=== PATIENT | female | born 1965 | race Caucasian/White ===

== ENCOUNTER 2023-02-17 00:39 | Inpatient (IN) ==
[2023-02-17] MEDS ORDERED: VANCOMYCIN HCL 2,000 MG in SODIUM CHLORIDE 0.9% 500 ML IV ONE (01:19)
[2023-02-17] MEDS ORDERED: VANCOMYCIN CONSULT ACTIVE PRN (01:19)
[2023-02-17] MEDS ORDERED: PIPERACILLIN/TAZOBACTAM 4.5 GM/120 ML BAG IV ONE (01:19)
[2023-02-17 01:25] LABS: Basophils # (auto) 0.02 K/uL (0-0.2); Basophils % (auto) 0.2 %; Eosinophils # (auto) 0.08 K/uL (0-0.50); Eosinophils % (auto) 0.8 %; Hematocrit (blood only) 36.7 % (37.0-47.0); Hemoglobin 12.4 g/dl (12.0-16.0); Immature Granulocytes # (auto) 0.02 K/uL (0.01-0.20); Immature Granulocytes % (auto) 0.2 %; Lymphocytes # (auto) 1.31 K/uL (1.2-3.4); Lymphocytes % (auto) 13.7 %; Mean Corpuscular Hemoglobin 29.6 pg (25.0-34.0); Mean Corpuscular Hgb Conc 33.8 g/dL (32.0-36.0); Mean Corpuscular Volume 87.6 fL (80.0-100.0); Mean Platelet Volume 10.2 fL (9.4-12.4); Monocytes # (auto) 1.12 K/uL (0.11-0.59); Monocytes % (auto) 11.7 %; Neutrophils # (auto) 6.99 K/uL (1.40-6.50); Neutrophils % (auto) 73.4 %; Platelet Count 161 K/uL (130-400); RDW Coefficient of Variation 13.7 % (11.5-14.5); RDW Standard Deviation 43.8 fL (36.4-46.3); Red Blood Count 4.19 M/uL (4.20-5.40); White Blood Count 9.54 K/ul (4.8-10.8)
[2023-02-17] MEDS ORDERED: SODIUM CHLORIDE 0.9% 1000ML 1,000 ML IV SCH ×2 (01:30→05:09)
[2023-02-17 01:40] LABS: Albumin Level 3.8 gm/dl (3.4-5.0); BUN Creatinine Ratio 15.9 (10-20); Bilirubin Direct 0.1 mg/dl (0-0.2); Bilirubin,Total 0.4 mg/dl (0.2-1.0); Calcium 9.1 mg/dl (8.6-10.3); Creatinine Clr Calc Pharmacy 90.4 ml/min; Est GFR (African American) 90.8 ml/min; Est GFR (Non-African American) 78.3 ml/min; Potassium 3.2 mmol/L (3.5-5.1); Total Protein 6.6 gm/dl (6.0-8.3)
[2023-02-17 01:47] LABS: Troponin I High Sensitivity 9.7 pg/ml (0-14)
--- NOTE | 2023-02-17 04:10 | History & Physical Report ---
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 Right thumb infection Cellulitis of the right upper extremity Blister on the right thumb Started IV Zosyn and Vanco Ortho consult N.p.o. for now Monitor the response History of CVA Cerebellar ataxia Wheelchair-bound speech and language deficits secondary to stroke On aspirin and statin peripheral artery disease On aspirin and statin Seems there is plan for vascular surgery evaluation Bilateral lower extreme edema on Lasix Hypertension On metoprolol DVT prophylaxis with Lovenox Disposition medical floor CODE STATUS DNR/DNI as per discussion with the patient History of Present Illness Chief Complaint: Right hand infection Primary Care Provider: [facility] 57-year-old female with past med significant for hyperlipidemia, peripheral artery disease, hypertension, history of pericardial fusion, GERD, vitamin B12 deficiency, osteopenia, osteoarthritis, history of bilateral lower extremity edema, cerebellar ataxia s/p CVA wheelchair-bound, 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 Patient reports blister of right thumb noticed yesterday and and progressive extending erythematous changes into the arm. Patient also seem to insect bites on the right posterior aspect of her thigh. [facility] Rocephin was given and the plan was to start Keflex but as infection was progressing was sent to ER. Patient has some pressured speech but is able to converse okay. Wheelchair-bound. She is states can eat regular diet. Denies any fevers. No pain at infection site. No chest pain or shortness of breath. No nausea. No abdominal pain. No headaches. No runny nose or sore throat. Normal bowel and bladder movements. Past medical history as mentioned above Past surgical history ligation of oviducts Social history currently single [facility]. Quit smoking 2008. Alcohol occasional. No drug use. Family history father mother has heart disease Allergies Allergy/AdvReac Type Severity Reaction Status Date / Time No Known Allergies Allergy Unverified 02/17/23 01:01 Home Medications Medication Instructions Recorded Confirmed Type acetaminophen 325 mg tablet 650 mg PO Q4 PRN mild to severe 02/17/23 02/17/23 History pain acetaminophen 325 mg tablet 650 mg PO Q4 PRN temp>100.4 02/17/23 02/17/23 History (Tylenol) alendronate 70 mg tablet 70 mg PO WK 02/17/23 02/17/23 History aspirin 81 mg tablet,delayed 81 mg PO DAILY 02/17/23 02/17/23 History release atorvastatin 20 mg tablet 20 mg PO HS 02/17/23 02/17/23 History biotin 300 mcg tablet 300 mcg PO DAILY 02/17/23 02/17/23 History calcium carbonate 200 mg calcium 200 mg PO Q6 PRN Indigestion 02/17/23 02/17/23 History (500 mg) chewable tablet (Calcium Antacid) cephalexin 500 mg capsule 500 mg PO TID 02/17/23 02/17/23 History cholecalciferol (vitamin D3) 25 25 mcg PO DAILY 02/17/23 02/17/23 History mcg (1,000 unit) tablet (Vitamin D3) citalopram 10 mg tablet 10 mg PO DAILY 02/17/23 02/17/23 History cyanocobalamin (vitamin B-12) 1,000 mcg IM MONTHLY 02/17/23 02/17/23 History 1,000 mcg/mL injection solution diclofenac sodium 1 % topical gel 4 g topical QID 02/17/23 02/17/23 History furosemide 40 mg tablet 40 mg PO QAM 02/17/23 02/17/23 History gabapentin 100 mg capsule 200 mg PO TID 02/17/23 02/17/23 History hydrocortisone 2.5 % topical cream 1 applic topical BID 02/17/23 02/17/23 History metoprolol tartrate 50 mg tablet 50 mg PO AMPM 02/17/23 02/17/23 History polyethylene glycol 3350 17 17 g PO WK 02/17/23 02/17/23 History gram/dose oral powder (Gavilax) povidone-iodine 10 % topical 1 applic topical TID 02/17/23 02/17/23 History solution (Betadine) topiramate 50 mg tablet 50 mg PO AMHS 02/17/23 02/17/23 History Past Med/Surg History Social History Smoking Status: Never smoker Preferred Language: [place] Feels Safe at Home: Yes Review of Systems Review of Systems: All systems reviewed & are unremarkable except as noted in Subjective Physical Exam Physical Exam: General- Not in distress Head- atraumatic Eyes- PERRL ENT- oropharynx clear Neck- supple, no JVD, Lungs- clear to auscultation bilaterally, no wheezing or crackles. Heart- regular rate rhythm; no murmur, no gallop. Abdomen- normal bowel sounds, soft, nontender, no distension. Extremities- no pretibial edema, Blister on right thumb, erythematous rash extending from right hand to forearm and arm.Excoriations seen on right thigh posterior aspect Neuro- alert, oriented x 3; PERRL, no facial palsy; pressured and slurred speech,insight ok, obeys commands, moves extremities Results & Data Results & Data Vital Signs (Past 12 Hours) Vital Signs Temp Pulse Pulse Resp BP BP Pulse Ox 02/17/23 03:17 59 L 17 126/75 95 02/17/23 00:48 64 02/17/23 00:57 61 17 99 02/17/23 00:57 37.2 C 61 17 133/95 99 02/17/23 00:49 37.2 C 61 17 133/95 99 O2 Del Method 02/17/23 03:17 Room Air 02/17/23 00:48 02/17/23 00:57 Room Air 02/17/23 00:57 Room Air 02/17/23 00:49 Room Air Diagnostic Findings Laboratory Results WBC 9.54 K/ul (4.8-10.8) 02/17/23 01:05 RBC 4.19 M/uL (4.20-5.40) L 02/17/23 01:05 Hgb 12.4 g/dl (12.0-16.0) 02/17/23 01:05 Hct 36.7 % (37.0-47.0) L 02/17/23 01:05 MCV 87.6 fL (80.0-100.0) 02/17/23 01:05 MCH 29.6 pg (25.0-34.0) 02/17/23 01:05 MCHC 33.8 g/dL (32.0-36.0) 02/17/23 01:05 RDW Std Deviation 43.8 fL (36.4-46.3) 02/17/23 01:05 RDW Coeff of Moise 13.7 % (11.5-14.5) 02/17/23 01:05 Plt Count 161 K/uL (130-400) 02/17/23 01:05 MPV 10.2 fL (9.4-12.4) 02/17/23 01:05 Immature Gran % (Auto) 0.2 % 02/17/23 01:05 Neut % (Auto) 73.4 % 02/17/23 01:05 Lymph % (Auto) 13.7 % 02/17/23 01:05 Rapides % (Auto) 11.7 % 02/17/23 01:05 Eos % (Auto) 0.8 % 02/17/23 01:05 Baso % (Auto) 0.2 % 02/17/23 01:05 Neut # (Auto) 6.99 K/uL (1.40-6.50) H 02/17/23 01:05 Lymph # (Auto) 1.31 K/uL (1.2-3.4) 02/17/23 01:05 Rapides # (Auto) 1.12 K/uL (0.11-0.59) H 02/17/23 01:05 Eos # (Auto) 0.08 K/uL (0-0.50) 02/17/23 01:05 Baso # (Auto) 0.02 K/uL (0-0.2) 02/17/23 01:05 Immature Gran # (Auto) 0.02 K/uL (0.01-0.20) 02/17/23 01:05 Sodium 141 mmol/L (136-145) 02/17/23 01:05 Potassium 3.2 mmol/L (3.5-5.1) L 02/17/23 01:05 Chloride 109 mmol/L (98-107) H 02/17/23 01:05 Carbon Dioxide 25 mmol/L (21-32) 02/17/23 01:05 Anion Gap 7 (3-11) 02/17/23 01:05 BUN 13 mg/dl (6-23) 02/17/23 01:05 Creatinine 0.82 mg/dl (0.6-1.2) 02/17/23 01:05 Est Cr Clr Drug Dosing 90.4 ml/min 02/17/23 01:05 Est GFR ( Amer) 90.8 ml/min 02/17/23 01:05 Est GFR (Non-Af Amer) 78.3 ml/min 02/17/23 01:05 BUN/Creatinine Ratio 15.9 (10-20) 02/17/23 01:05 Glucose 118 mg/dl (70-99(Fasting)) H 02/17/23 01:05 Lactate 0.9 mmol/L (0.4-2.0) 02/17/23 01:05 Calcium 9.1 mg/dl (8.6-10.3) 02/17/23 01:05 Magnesium 2.0 mg/dl (1.7-2.4) 02/17/23 01:05 Total Bilirubin 0.4 mg/dl (0.2-1.0) 02/17/23 01:05 Direct Bilirubin 0.1 mg/dl (0-0.2) 02/17/23 01:05 AST 11 U/L (13-39) L 02/17/23 01:05 ALT 10 U/L (7-52) 02/17/23 01:05 Alkaline Phosphatase 57 U/L (34-104) 02/17/23 01:05 Troponin I High Sens 9.7 pg/ml (0-14) 02/17/23 01:05 Total Protein 6.6 gm/dl (6.0-8.3) 02/17/23 01:05 Albumin 3.8 gm/dl (3.4-5.0) 02/17/23 01:05 Procalcitonin < 0.05 ng/ml (0-0.5) 02/17/23 01:05 SARS-CoV-2, RNA, NAAT NEGATIVE (NEGATIVE) 02/17/23 03:17 ECG Additional Comments: ECG sinus bradycardia at rate of [address] changes seen Code Status & VTE Plan VTE Prophylaxis Plan VTE Prophylaxis will be ordered: Yes
[2023-02-17] MEDS ORDERED: ACETAMINOPHEN 325 MG TAB PO PRN (05:09)
[2023-02-17] MEDS ORDERED: CALCIUM CARBONATE 500 MG CHEWABLE TAB PO PRN (05:09)
[2023-02-17] MEDS ORDERED: POLYETHYLENE (MIRALAX) 17 GM PACK PO PRN (05:09)
[2023-02-17 07:06] LABS: Appearance Urine Cloudy (Clear); Bacteria Urine Automated Negative (Negative); Bilirubin Urine Negative (Negative); Blood Urine Trace (Negative); Cast Urine Automated 0 /lpf (0-5); Color Urine Yellow; Glucose Urine UA Negative (Negative); Ketones Urine Negative (Negative); Leukocyte Esterase Urine Negative (Negative); Nitrite Urine Negative (Negative); Protein Urine Negative (Negative); Specific Gravity Urine 1.014 (1.000-1.030); Urobilinogen Urine Negative (Negative); pH Urine 7.5 (4.5-7.5)
--- NOTE | 2023-02-17 07:32 | XRay Report ---
XR chest 1V portable HISTORY: Sepsis COMPARISON: None. FINDINGS: There are low lung volumes. The cardiac silhouette is enlarged. There is mild central pulmo nary vascular congestion without overt edema. No focal lung consolidations to suggest a pneumonia. Ca lcifications noted within the aortic knob. No acute fractures identified. IMPRESSION: Cardiomegaly with mild central pulmonary vascular congestion without overt edema. ACT 112: Negative or not required by law. Electronically signed by: Jordan Vincent M.D. 02/17/2023 7:31 AM
[2023-02-17] MEDS ORDERED: PIPERACILLIN/TAZOBACTAM 4.5 GM in DEXTROSE 5% 100 ML IV SCH (08:00)
[2023-02-17 08:42] LABS: Basophils # (auto) 0.01 K/uL (0-0.2); Basophils % (auto) 0.1 %; Eosinophils # (auto) 0.08 K/uL (0-0.50); Eosinophils % (auto) 0.9 %; Hematocrit (blood only) 37.7 % (37.0-47.0); Hemoglobin 12.5 g/dl (12.0-16.0); Immature Granulocytes # (auto) 0.04 K/uL (0.01-0.20); Immature Granulocytes % (auto) 0.5 %; Lymphocytes # (auto) 0.91 K/uL (1.2-3.4); Lymphocytes % (auto) 10.7 %; Mean Corpuscular Hemoglobin 29.1 pg (25.0-34.0); Mean Corpuscular Hgb Conc 33.2 g/dL (32.0-36.0); Mean Corpuscular Volume 87.9 fL (80.0-100.0); Mean Platelet Volume 10.3 fL (9.4-12.4); Monocytes # (auto) 0.93 K/uL (0.11-0.59); Monocytes % (auto) 10.9 %; Neutrophils # (auto) 6.54 K/uL (1.40-6.50); Neutrophils % (auto) 76.9 %; Platelet Count 141 K/uL (130-400); RDW Coefficient of Variation 13.9 % (11.5-14.5); Red Blood Count 4.29 M/uL (4.20-5.40); White Blood Count 8.51 K/ul (4.8-10.8)
[2023-02-17 08:56] LABS: BUN Creatinine Ratio 15.4 (10-20); Calcium 8.1 mg/dl (8.6-10.3); Creatinine Clr Calc Pharmacy 113.3 ml/min; Est GFR (African American) 112.6 ml/min; Est GFR (Non-African American) 97.2 ml/min; Magnesium 1.8 mg/dl (1.7-2.4)
--- NOTE | 2023-02-17 09:11 | Pharmacy Report ---
Pharmacy PK ABX Note - Date of Service February 17, 2023 - Assessment and Plan Assessment 57 year old F receiving empiric vancomycin and Zosyn for treatment of right hand/upper extremity cellulitis. Patient resides at [facility] and is wheelchair bound following CVA. She reportedly received dose of ceftriaxone prior to coming to ER. Pertinent microbiologic data includes: Positive MRSA Nasal Swab, blood cultures x 2 pending. Patient is afebrile with negative procalcitonin and no overt leukocytosis Discussed with hospitalist, no known history of MDR gram-negative infection, will de-escalate Zosyn to ceftriaxone for now for more narrow gram-negative coverage. Day # 1 of antimicrobial therapy. Plan Vancomycin * Loading dose: 2000 mg IV x 1 * Maintenance dose: 1500 mg IV every 12 hours * Regimen is predicted to achieve target AUC/DILMA of 400-600 mg/L.hr * Random level ordered for: 02/19/23 Ceftriaxone * 2 g IV q24h Pharmacy will continue to follow and will adjust dose/frequency as necessary. Thank you. Pharmacy has transitioned to AUC monitoring for vancomycin. AUC/DILMA is the preferred PK/PD target and is associated with decreased risk of nephrotoxicity compared to traditional trough targets.
[2023-02-17] MEDS ORDERED: POTASSIUM CHLORIDE CRTAB 20 MEQ TABCR PO ONE (09:56)
[2023-02-17] MEDS: GABAPENTIN 100 MG CAP PO SCH ×3 (10:03→21:35)
[2023-02-17] MEDS: ASPIRIN 81 MG ECTAB PO SCH (10:03)
[2023-02-17] MEDS: CITALOPRAM 20 MG TAB PO SCH (10:03)
[2023-02-17] MEDS: CHOLECALCIFEROL 1,000 UNITS 25 MCG TAB PO SCH (10:03)
[2023-02-17] MEDS: FUROSEMIDE 40 MG TAB PO SCH (10:03)
[2023-02-17] MEDS: METOPROLOL TARTRATE 50 MG TAB PO SCH ×3 (10:04→21:37)
[2023-02-17] MEDS: ENOXAPARIN INJ 40 MG/0.4 ML SYR SQ SCH (10:04)
[2023-02-17] MEDS: TOPIRAMATE 50 MG TAB PO SCH ×2 (10:04→21:35)
[2023-02-17] MEDS: DICLOFENAC SOD 1% GEL 100 GM TUBE EXT SCH ×4 (10:04→21:36)
[2023-02-17] MEDS: VANCOMYCIN HCL 1,500 MG in SODIUM CHLORIDE 0.9% 500 ML IV SCH ×2 (11:07→21:29)
[2023-02-17] MEDS: POTASSIUM CHLORIDE / WTR 10 MEQ/100 ML PLCT IV SCH ×2 (11:08→12:15)
[2023-02-17] MEDS ORDERED: VANCOMYCIN HCL 1,250 MG in SODIUM CHLORIDE 0.9% 250 ML IV SCH (12:00)
--- NOTE | 2023-02-17 14:16 | Electrocardiogram Report ---
Test Reason : Blood Pressure : / mmHG Vent. Rate : 054 BPM Atrial Rate : 054 BPM P-R Int : 160 ms QRS Dur : 102 ms QT Int : 460 ms P-R-T Axes : 000 000 033 degrees QTc Int : 436 ms Sinus bradycardia Otherwise normal ECG No previous ECGs available Confirmed by Mark Orellana ([id number]) on 02/17/2023 2:15:32 PM Referred By: [facility] Confirmed By:Mil Orellana
--- NOTE | 2023-02-17 14:51 | Orthopedic Consultation ---
Date of Service February 17, 2023 Assessment & Plan (1) Infected hand: I cancelled her NPO order today. Will check ESR, CRP and xray of the thumb. I also ordered a MRI of the hand to evaluate for any abscess or fluid in the mcp joint. Will make her npo after midnight tonight in case of surgery tomorrow. Will discuss with Dr. Ceja, and continue to follow. History of Present Illness Reason for Consultation: . Requesting Physician: . Attending Physician: Daniel Killian MD . Nohelia is a 57 year old right hand dominant patient admitted for right thumb infection. She is a resident at [facility]. She states that she noticed a blister on her thumb "the other day". Per the admission H & P she developed this blister yesterday. Apparently she has some lesion on her thigh which is thought to be maybe a bug bite. She had erythema extending into the right forearm and was admitted last night, started on vanco/zoxyn, and is now recieving vanco and cetriaxone. She has not noticed much change since being admitted. She said that the thumb as not worsened or improved. She does not have much pain with it, e xcept for around the mcp joint. Allergies Allergy/AdvReac Type Severity Reaction Status Date / Time No Known Allergies Allergy Unverified 02/17/23 01:01 Home Medications Medication Instructions Recorded Confirmed Type acetaminophen 325 mg tablet 650 mg PO Q4 PRN mild to severe 02/17/23 02/17/23 History pain acetaminophen 325 mg tablet 650 mg PO Q4 PRN temp>100.4 02/17/23 02/17/23 History (Tylenol) alendronate 70 mg tablet 70 mg PO WK 02/17/23 02/17/23 History aspirin 81 mg tablet,delayed 81 mg PO DAILY 02/17/23 02/17/23 History release atorvastatin 20 mg tablet 20 mg PO HS 02/17/23 02/17/23 History biotin 300 mcg tablet 300 mcg PO DAILY 02/17/23 02/17/23 History calcium carbonate 200 mg calcium 200 mg PO Q6 PRN Indigestion 02/17/23 02/17/23 History (500 mg) chewable tablet (Calcium Antacid) cephalexin 500 mg capsule 500 mg PO TID 02/17/23 02/17/23 History cholecalciferol (vitamin D3) 25 25 mcg PO DAILY 02/17/23 02/17/23 History mcg (1,000 unit) tablet (Vitamin D3) citalopram 10 mg tablet 10 mg PO DAILY 02/17/23 02/17/23 History cyanocobalamin (vitamin B-12) 1,000 mcg IM MONTHLY 02/17/23 02/17/23 History 1,000 mcg/mL injection solution diclofenac sodium 1 % topical gel 4 g topical QID 02/17/23 02/17/23 History furosemide 40 mg tablet 40 mg PO QAM 02/17/23 02/17/23 History gabapentin 100 mg capsule 200 mg PO TID 02/17/23 02/17/23 History hydrocortisone 2.5 % topical cream 1 applic topical BID 02/17/23 02/17/23 History metoprolol tartrate 50 mg tablet 50 mg PO AMPM 02/17/23 02/17/23 History polyethylene glycol 3350 17 17 g PO WK 02/17/23 02/17/23 History gram/dose oral powder (Gavilax) povidone-iodine 10 % topical 1 applic topical TID 02/17/23 02/17/23 History solution (Betadine) topiramate 50 mg tablet 50 mg PO AMHS 02/17/23 02/17/23 History Past Med/Surg History Social History Smoking Status: Never smoker Hx Alcohol Use: No Hx Substance Use: No Preferred Language: Malian Communication Ability: Effective [employer] Hostess Required: No Beliefs That Will Affect Care: None Current Living Situation: Residential Other Information That Helps Us Care for You: No Feels Safe at Home: Yes Safety Concerns: Feels Safe At This Time Assistive Devices: Glasses Review of Systems All systems reviewed & are unremarkable except as noted in HPI & below. Physical Exam .alert and oriented. NAD. Sleeping when I saw her today and was easily awakened. Right upper extremity: Obvoius swelling, blistering of the right thumb. The blister is mostly on the dorsal radial side and extending around volar slightly. It extends from the nail fold to the mcp joint. No tenderness on the volar aspect of the finger, IP joint, or nail. She does have some tenderness of the mcp joint. Some erythema present around the thumb and extending faintly into the forearm. No pain with motion of her thumb, fingers, wrist or elbow. Palpable radial pulse. Sensation intact to touch. Vital signs stable, afebrile. wbc 8.51 today Results & Data Results & Data Laboratory Results . Diagnostic Findings . PG Care Time/CCT Total # of Minutes Spent Total Time Spent with Patient: Total time spent is greater than 50% in coordination of care (as documented) at patient's floor/unit and/or counseling patient: Coding Level of Care Code 85777 IN/OBS CONSULT LVL 3,45M Diagnoses Infected hand L08.9
[2023-02-17] MEDS: cefTRIAXone SODIUM 2,000 MG in DEXTROSE 5% 50 ML IV SCH (15:19)
--- NOTE | 2023-02-17 15:23 | Hospitalist Progress Note ---
Date of Service February 17, 2023 Assessment & Plan (1) Infected hand: Plan: Patient is a 57 yr female with H/O Hyperlipidemia, peripheral artery disease, hypertension, history of pericardial fusion, GERD, vitamin B12 deficiency osteopenia, osteoarthritis, history of bilateral lower extremity edema, cerebellar ataxia s/p CVA wheelchair-bound, speech and language deficits as late effect of stroke, anxiety, depression, history of tobacco abuse currently residing at [facility], [facility] [place] was brought in because of infection of the right hand. Right thumb infection R/O Abscess Cellulitis of the right upper extremity Blister on the right thumb -- ESR, CRP pending --X-ray, MRI hand pending --Blood cultures pending Pain is controlled Continue IV vancomycin, Rocephin for now Appreciate orthopedics input N.p.o. after midnight for possible procedure Hypokalemia Replete electrolytes as needed Monitor H/O CVA Cerebellar ataxia Wheelchair-bound at [facility] Speech and language deficits secondary to stroke On aspirin and statin Peripheral artery disease Continue aspirin and statin Planned for vascular surgery evaluation as outpatient B/L LE edema ? Venous Stasis Continue Lasix Hypertension Continue metoprolol DVT Px: Lovenox SQ CODE STATUS DNR/DNI Admission and Anticipated Discharge Date Admission Date: February 17, 2023 Subjective Patient is seen and examined at bedside States having right upper extremity discomfort associated with erythema Otherwise offers no new complaints Denies any chest pain, dyspnea, dizziness, nausea, vomiting, abdominal pain Review of Systems Review of Systems: All systems reviewed & are unremarkable except as noted in Subjective Physical Exam Physical Exam: Physical Exam: Vitals signs as noted above General Appearance:Moderately built and nourished, no apparent distress Head: normocephalic, Atraumatic Eyes: normal inspection, EOMI Neck: supple, Trachea midline Respiratory/Chest: Normal breath sounds, CTA, No accessory muscle use Cardiovascular: S1, S2, No murmur Abdomen/GI:Soft, Non tender, Bowel sounds present Extremities/Musculoskeletal:normal inspection, 1+ pedal edema, RUE+ Blister, Erythema Neurologic/Psych:AAO, +dysarthria , able to move all extremities Skin: normal color, warm Results & Data Results & Data Vital Signs (Past 12 Hours) Vital Signs Temp Pulse Pulse Pulse Resp BP BP 02/17/23 12:30 02/17/23 07:00 37.0 C 62 16 134/79 08/09/23 05:10 02/17/23 05:10 37.3 C 71 18 147/80 H 02/17/23 04:53 02/17/23 03:17 59 L 17 126/75 Pulse Ox O2 Del Method 02/17/23 12:30 Room Air 02/17/23 07:00 97 Room Air 02/17/23 05:10 Room Air 02/17/23 05:10 98 Room Air 02/17/23 04:53 Room Air 02/17/23 03:17 95 Room Air Laboratory Results Short CBC 02/17/23 02/17/23 Range/Units 01:05 07:42 WBC 9.54 8.51 (4.8-10.8) K/ul Hgb 12.4 12.5 (12.0-16.0) g/dl Hct 36.7 L 37.7 (37.0-47.0) % Plt Count 161 141 (130-400) K/uL BMP 02/17/23 02/17/23 01:05 07:42 Sodium 141 142 Potassium 3.2 L 3.0 L Chloride 109 H 112 H Carbon Dioxide 25 23 BUN 13 10 Creatinine 0.82 0.65 Glucose 118 H 106 H Calcium 9.1 8.1 L Liver Function 02/17/23 Range/Units 01:05 Total Bilirubin 0.4 (0.2-1.0) mg/dl Direct Bilirubin 0.1 (0-0.2) mg/dl AST 11 L (13-39) U/L ALT 10 (7-52) U/L Alkaline Phosphatase 57 (34-104) U/L Albumin 3.8 (3.4-5.0) gm/dl Urine 02/17/23 Range/Units 05:40 Urine Color Yellow Urine Appearance Cloudy A (Clear) Urine pH 7.5 (4.5-7.5) Ur Specific Beatrice 1.014 (1.000-1.030) Urine Protein Negative (Negative) Urine Glucose (UA) Negative (Negative)
--- NOTE | 2023-02-17 19:12 | XRay Report ---
RIGHT THUMB 3 VIEWS CLINICAL HISTORY: Thumb pain and infection. FINDINGS: 3 views of the right thumb are obtained. No prior studies are available for comparison at t he time of dictation. The skeletal structures are osteopenic. No fracture is seen. Mild osteoarthriti c change is seen at the first metacarpophalangeal and interphalangeal joints. Soft tissue edema is pr esent throughout the thumb, greatest dorsally. No bony erosion or periostitis is identified. No soft tissue gas or radiodense foreign body seen. IMPRESSION: Soft tissue swelling with no acute bony abnormality identified. Electronically signed by: Joey Carlos M.D. 02/17/2023 7:11 PM
--- NOTE | 2023-02-17 19:53 | Communication Note ---
Date of Service: February 17, 2023 I was consulted to see the patient regarding her thumb abscess by the hospitalist team as noted in the orders and in the hospitalist H&P. I came to perform the consultation however patient had already been seen by Brody Dewitt PA-C for the [facility]. I will defer care to Dr. Ceja and Brody Dewitt PA-C. Thank you for the consultation. Chuck Strauss, [facility] [place] Office: [phone]
[2023-02-17] MEDS: ATORVASTATIN 20 MG TAB PO SCH (21:35)
--- NOTE | 2023-02-17 22:09 | Magnetic Resonance Report ---
Exam(s): MRI RIGHT HAND Without Contrast EXAM: MR Right Upper Extremity Without Intravenous Contrast, Hand CLINICAL HISTORY: Reason for exam: thumb infection-attention to thumb. TECHNIQUE: Multiplanar magnetic resonance images of the right hand without intravenous contrast. COMPARISON: No relevant prior studies available. FINDINGS: Soft tissue bulla along the skin of the thumb. No abscess. No soft tissue gas. Marrow signal is within normal limits. No acute osteomyelitis. No joint effusion or septic arthritis. IMPRESSION: Soft tissue bulla of the thumb as can be seen in the setting of cellulitis. No underlying osteomyelitis or soft tissue abscess. Electronically signed by: Yosvany Rice MD 02/17/23 22:08 PM
--- NOTE | 2023-02-18 00:23 | Emergency Department Note ---
History of Present Illness General Chief complaint: Hand Injury/Pain Stated complaint: Blister R Thumb, Rash/Ulcer R Leg Time Seen by Provider: 02/17/23 00:46 History of Present Illness Maximum Pain Intensity: 5 This is a 57-year-old female presenting to the emergency department for evalu ation of infection to her right thumb and right arm. Patient is at a local detention and has received a dose of Rocephin that has not improved her pain. This initially was felt to be a blood blister that is now infected. The patient has had strokes in the past and slurs her speech at baseline. She has difficulty with ambulation and there are concerns for decubitus ulcers. Patient has not had distinct fever or chills. She rates her discomfort a 5/10. She arrives via EMS from the detention for evaluation. Home Medications Medication Instructions Recorded Confirmed Type acetaminophen 325 mg tablet 650 mg PO Q4 PRN mild to severe 02/17/23 02/17/23 History pain acetaminophen 325 mg tablet 650 mg PO Q4 PRN temp>100.4 02/17/23 02/17/23 History (Tylenol) alendronate 70 mg tablet 70 mg PO WK 02/17/23 02/17/23 History aspirin 81 mg tablet,delayed 81 mg PO DAILY 02/17/23 02/17/23 History release atorvastatin 20 mg tablet 20 mg PO HS 02/17/23 02/17/23 History biotin 300 mcg tablet 300 mcg PO DAILY 02/17/23 02/17/23 History calcium carbonate 200 mg calcium 200 mg PO Q6 PRN Indigestion 02/17/23 02/17/23 History (500 mg) chewable tablet (Calcium Antacid) cephalexin 500 mg capsule 500 mg PO TID 02/17/23 02/17/23 History cholecalciferol (vitamin D3) 25 25 mcg PO DAILY 02/17/23 02/17/23 History mcg (1,000 unit) tablet (Vitamin D3) citalopram 10 mg tablet 10 mg PO DAILY 02/17/23 02/17/23 History cyanocobalamin (vitamin B-12) 1,000 mcg IM MONTHLY 02/17/23 02/17/23 History 1,000 mcg/mL injection solution diclofenac sodium 1 % topical gel 4 g topical QID 02/17/23 02/17/23 History furosemide 40 mg tablet 40 mg PO QAM 02/17/23 02/17/23 History gabapentin 100 mg capsule 200 mg PO TID 02/17/23 02/17/23 History hydrocortisone 2.5 % topical cream 1 applic topical BID 02/17/23 02/17/23 History metoprolol tartrate 50 mg tablet 50 mg PO AMPM 02/17/23 02/17/23 History polyethylene glycol 3350 17 17 g PO WK 02/17/23 02/17/23 History gram/dose oral powder (Gavilax) povidone-iodine 10 % topical 1 applic topical TID 02/17/23 02/17/23 History solution (Betadine) topiramate 50 mg tablet 50 mg PO AMHS 02/17/23 02/17/23 History Allergies Allergy/AdvReac Type Severity Reaction Status Date / Time No Known Allergies Allergy Unverified 02/17/23 01:01 Past Med/Surg History Medical History History of stroke detention resident Surgical History Surgical history unknown Social History Smoking Status: Never smoker Hx Alcohol Use: No Hx Substance Use: No Preferred Language: Slovenian Communication Ability: Effective Research Engineer Required: No Beliefs That Will Affect Care: None Current Living Situation: Detention Other Information That Helps Us Care for You: No Feels Safe at Home: Yes Safety Concerns: Feels Safe At This Time Assistive Devices: Glasses Review of Systems A total of 10 systems reviewed and were otherwise negative Physical Exam Vital Signs Vital Signs - 24 hr 02/17/23 00:49 02/17/23 00:57 02/17/23 00:57 Temperature 37.2 C 37.2 C Temperature Source Oral Oral Pulse Rate 61 61 Pulse Rate [Apical] 61 Respiratory Rate 17 17 17 Respiratory Effort / Characteristics Non-Labored Spontaneous Non-Labored Spontaneous Respiratory Depth Normal Normal Blood Pressure 133/95 Blood Pressure [Right Arm] 133/95 Blood Pressure Mean 107 Blood Pressure Mean [Right Arm] 107 Blood Pressure Position Lying Blood Pressure Position [Right Arm] Lying Pulse Oximetry 99 99 99 Oxygen Delivery Method Room Air Room Air Room Air Sepsis Recent Fever Within 48 Hours No Sepsis New/Unexplained Change in Mental Status No Sepsis Action Taken by Nursing No Action Required 02/17/23 00:48 02/17/23 03:17 Temperature Temperature Source Pulse Rate 64 Pulse Rate [Apical] 59 L Respiratory Rate 17 Respiratory Effort / Characteristics Non-Labored Spontaneous Respiratory Depth Normal Blood Pressure Blood Pressure [Right Arm] 126/75 Blood Pressure Mean Blood Pressure Mean [Right Arm] 92 Blood Pressure Position Blood Pressure Position [Right Arm] Lying Pulse Oximetry 95 Oxygen Delivery Method Room Air Sepsis Recent Fever Within 48 Hours Sepsis New/Unexplained Change in Mental Status Sepsis Action Taken by Nursing VITALS: Vitals are noted on the nurse's note and reviewed by myself. Vital signs stable. GENERAL: White female who is pleasant and appears older than stated age. She has some slurring of speech that is reportedly baseline per EMS. HEAD: Normocephalic atraumatic. HEART: Regular rate and rhythm without murmurs gallops or rubs. LUNGS: Clear to auscultation bilaterally without wheezes, rales or rhonchi. No retractions or accessory muscle use. MUSCULOSKELETAL: The right thumb into the right wrist is quite erythematous and edematous. There does appear to be straw-colored fluid around the fingernail of the right thumb without obvious purulence. There is lymphangitic streaking up into the mid bicep on the right. NEURO: Patient was alert and oriented to person place and time. Course Administered Medications Aspirin (Aspirin 81 Mg Ectab) 81 mg PO DAILY [facility] Stop: 03/19/23 08:59 Last Admin: 02/17/23 10:03 Dose: 81 mg Documented By: JOIE Atorvastatin Calcium (Atorvastatin 20 Mg Tab) 20 mg PO HS [facility] Stop: 03/19/23 20:59 Last Admin: 02/17/23 21:35 Dose: 20 mg Documented By: SYEDA Citalopram Hydrobromide (Citalopram 20 Mg Tab) 10 mg PO DAILY [facility] Stop: 03/19/23 08:59 Last Admin: 02/17/23 10:03 Dose: 10 mg Documented By: JOIE Diclofenac Sodium (Diclofenac Sod 1% Gel 100 Gm Tube) 4 gm EXT QID [facility]; Protocol Stop: 03/19/23 08:59 Last Admin: 02/17/23 21:36 Dose: 4 gm Documented By: Admin: 02/17/23 18:43 Dose: 4 gm Documented By: Admin: 02/17/23 13:54 Dose: 4 gm Documented By: Admin: 02/17/23 10:04 Dose: 4 gm Documented By: JOIE Enoxaparin Sodium (Enoxaparin Inj 40 Mg/0.4 Ml Syr) 40 mg SQ Q24H [facility] Stop: 03/19/23 08:59 Last Admin: 02/17/23 10:04 Dose: 40 mg Documented By: JOIE Furosemide (Furosemide 40 Mg Tab) 40 mg PO QAM [facility] Stop: 03/19/23 08:59 Last Admin: 02/17/23 10:03 Dose: 40 mg Documented By: JOIE Gabapentin (Gabapentin 100 Mg Cap) 200 mg PO TID [facility] Stop: 03/19/23 08:59 Last Admin: 02/17/23 21:35 Dose: 200 mg Documented By: Admin: 02/17/23 13:54 Dose: 200 mg Documented By: Admin: 02/17/23 10:03 Dose: 200 mg Documented By: JOIE Vancomycin HCl 1,500 mg/ (Sodium Chloride) 530 mls @ 200 mls/hr IV Q12H [facility] Stop: 02/24/23 09:59 Last Admin: 02/17/23 21:29 Dose: 200 mls/hr Documented By: Infusion: 02/17/23 14:10 Dose: 0 mls/hr Documented By: Admin: 02/17/23 11:07 Dose: 200 mls/hr Documented By: JOIE Ceftriaxone Sodium 2,000 mg/ (Dextrose) 70 mls @ 140 mls/hr IV Q24H [facility] Stop: 02/24/23 15:59 Last Infusion: 02/17/23 15:54 Dose: 0 mls/hr Documented By: Admin: 02/17/23 15:19 Dose: 140 mls/hr Documented By: JOIE Metoprolol Tartrate (Metoprolol Tartrate 50 Mg Tab) 50 mg PO BID [facility] Stop: 03/19/23 08:59 Last Admin: 02/17/23 21:37 Dose: Not Given Documented By: Admin: 02/17/23 10:04 Dose: 50 mg Documented By: JOIE Topiramate (Topiramate 50 Mg Tab) 50 mg PO BID [facility] Stop: 03/19/23 08:59 Last Admin: 02/17/23 21:35 Dose: 50 mg Documented By: Admin: 02/17/23 10:04 Dose: 50 mg Documented By: JOIE Vitamin D (Cholecalciferol 1,000 Units 25 Mcg Tab) 1,000 units PO DAILY [facility] Stop: 03/19/23 08:59 Last Admin: 02/17/23 10:03 Dose: 1,000 units Documented By: GENEVAL Discontinued Medications Sodium Chloride (Nss 1000ml) 1,000 mls @ 999 mls/hr IV .Q1H1M [facility] Stop: 02/17/23 02:30 Last Infusion: 02/17/23 03:27 Dose: 0 mls/hr Documented By: Admin: 02/17/23 01:51 Dose: 999 mls/hr Documented By: CC Vancomycin HCl 2,000 mg/ (Sodium Chloride) 540 mls @ 200 mls/hr IV NOW ONE Stop: 02/17/23 04:00 Last Admin: 02/17/23 02:27 Dose: 200 mls/hr Documented By: CC Piperacillin Sod/Tazobactam Sod (Zosyn) 4.5 gm in 120 mls @ 240 mls/hr IV NOW ONE Stop: 02/17/23 01:48 Last Infusion: 02/17/23 02:26 Dose: 0 mls/hr Documented By: Admin: 02/17/23 01:49 Dose: 240 mls/hr Documented By: CC Piperacillin Sod/Tazobactam (Sod 4.5 gm/ Dextrose) 120 mls @ 30 mls/hr IV Q8H [facility]; Protocol Stop: 02/17/23 12:00 Last Infusion: 02/17/23 12:21 Dose: 0 mls/hr Documented By: Admin: 02/17/23 08:07 Dose: 30 mls/hr Documented By: RDL Sodium Chloride (Nss 1000ml) 1,000 mls @ 100 mls/hr IV .Q10H [facility] Stop: 02/17/23 15:08 Last Infusion: 02/17/23 15:20 Dose: 0 mls/hr Documented By: Admin: 02/17/23 05:49 Dose: 100 mls/hr Documented By: DEVIKA Potassium Chloride (K [place] / Wtr) 10 meq in 100 mls @ 100 mls/hr IV Q1H [facility] Stop: 02/17/23 11:59 Last Infusion: 02/17/23 13:47 Dose: 0 mls/hr Documented By: Admin: 02/17/23 12:15 Dose: 100 mls/hr Documented By: Infusion: 02/17/23 12:08 Dose: 100 mls/hr Documented By: Admin: 02/17/23 11:08 Dose: 100 mls/hr Documented By: GENEVAL Potassium Chloride (Potassium Chloride Crtab 20 Meq Tabcr) 40 meq PO ONE ONE Stop: 02/17/23 09:57 Last Admin: 02/17/23 11:08 Dose: 40 meq Documented By: RDL Medical Decision Making Differential Diagnosis Differential diagnosis includes: Etiologies such as cellulitis, abscess, osteomyelitis, MRSA infection, DVT, necrotizing fasciitis, dermatitis, drug eruption, as well as others were entertained Laboratory Data 02/17/23 07:42 02/17/23 07:42 Lab Results 02/17/23 02/17/23 02/17/23 Range/Units 01:05 01:05 01:05 WBC 9.54 (4.8-10.8) K/ul RBC 4.19 L (4.20-5.40) M/uL Hgb 12.4 (12.0-16.0) g/dl Hct 36.7 L (37.0-47.0) % MCV 87.6 (80.0-100.0) fL MCH 29.6 (25.0-34.0) pg MCHC 33.8 (32.0-36.0) g/dL RDW Std Deviation 43.8 (36.4-46.3) fL RDW Coeff of Moise 13.7 (11.5-14.5) % Plt Count 161 (130-400) K/uL MPV 10.2 (9.4-12.4) fL Immature Gran % (Auto) 0.2 % Neut % (Auto) 73.4 % Lymph % (Auto) 13.7 % [place] % (Auto) 11.7 % Eos % (Auto) 0.8 % Baso % (Auto) 0.2 % Neut # (Auto) 6.99 H (1.40-6.50) K/uL Lymph # (Auto) 1.31 (1.2-3.4) K/uL [place] # (Auto) 1.12 H (0.11-0.59) K/uL Eos # (Auto) 0.08 (0-0.50) K/uL Baso # (Auto) 0.02 (0-0.2) K/uL Immature Gran # (Auto) 0.02 (0.01-0.20) K/uL Sodium 141 (136-145) mmol/L Potassium 3.2 L (3.5-5.1) mmol/L Chloride 109 H (98-107) mmol/L Carbon Dioxide 25 (21-32) mmol/L Anion Gap 7 (3-11) BUN 13 (6-23) mg/dl Creatinine 0.82 (0.6-1.2) mg/dl Est Cr Clr Drug Dosing 90.4 ml/min Est GFR ( Amer) 90.8 ml/min Est GFR (Non-Af Amer) 78.3 ml/min BUN/Creatinine Ratio 15.9 (10-20) Glucose 118 H (70-99(Fasting)) mg/dl Lactate 0.9 (0.4-2.0) mmol/L Calcium 9.1 (8.6-10.3) mg/dl Magnesium 2.0 (1.7-2.4) mg/dl Total Bilirubin 0.4 (0.2-1.0) mg/dl Direct Bilirubin 0.1 (0-0.2) mg/dl AST 11 L (13-39) U/L ALT 10 (7-52) U/L Alkaline Phosphatase 57 (34-104) U/L Troponin I High Sens 9.7 (0-14) pg/ml Total Protein 6.6 (6.0-8.3) gm/dl Albumin 3.8 (3.4-5.0) gm/dl Procalcitonin (0-0.5) ng/ml SARS-CoV-2, RNA, NAAT (NEGATIVE) 02/17/23 02/17/23 Range/Units 01:05 03:17 WBC (4.8-10.8) K/ul RBC (4.20-5.40) M/uL Hgb (12.0-16.0) g/dl Hct (37.0-47.0) % MCV (80.0-100.0) fL MCH (25.0-34.0) pg MCHC (32.0-36.0) g/dL RDW Std Deviation (36.4-46.3) fL RDW Coeff of Moise (11.5-14.5) % Plt Count (130-400) K/uL MPV (9.4-12.4) fL Immature Gran % (Auto) % Neut % (Auto) % Lymph % (Auto) % [place] % (Auto) % Eos % (Auto) % Baso % (Auto) % Neut # (Auto) (1.40-6.50) K/uL Lymph # (Auto) (1.2-3.4) K/uL [place] # (Auto) (0.11-0.59) K/uL Eos # (Auto) (0-0.50) K/uL Baso # (Auto) (0-0.2) K/uL Immature Gran # (Auto) (0.01-0.20) K/uL Sodium (136-145) mmol/L Potassium (3.5-5.1) mmol/L Chloride (98-107) mmol/L Carbon Dioxide (21-32) mmol/L Anion Gap (3-11) BUN (6-23) mg/dl Creatinine (0.6-1.2) mg/dl Est Cr Clr Drug Dosing ml/min Est GFR ( Amer) ml/min Est GFR (Non-Af Amer) ml/min BUN/Creatinine Ratio (10-20) Glucose (70-99(Fasting)) mg/dl Lactate (0.4-2.0) mmol/L Calcium (8.6-10.3) mg/dl Magnesium (1.7-2.4) mg/dl Total Bilirubin (0.2-1.0) mg/dl Direct Bilirubin (0-0.2) mg/dl AST (13-39) U/L ALT (7-52) U/L Alkaline Phosphatase (34-104) U/L Troponin I High Sens (0-14) pg/ml Total Protein (6.0-8.3) gm/dl Albumin (3.4-5.0) gm/dl Procalcitonin < 0.05 (0-0.5) ng/ml SARS-CoV-2, RNA, NAAT NEGATIVE (NEGATIVE) Imaging Data Radiologist's Impression: Chest X-Ray 02/17/23 00:53 XR chest 1V portable HISTORY: Sepsis COMPARISON: None. FINDINGS: There are low lung volumes. The cardiac silhouette is enlarged. There is mild central pulmonary vascular congestion without overt edema. No focal lung consolidations to suggest a pneumonia. Calcifications noted within the aortic knob. No acute fractures identified. IMPRESSION: Cardiomegaly with mild central pulmonary vascular congestion without overt edema. ACT 112: Negative or not required by law. Electronically signed by: Jordan Vincent M.D. 02/17/2023 7:31 AM MDM Narrative Physical exam and history were performed. Nursing notes, EMR, and Medication List were personally reviewed. No social concerns were identified as barriers to patients care. Patient appears to have infection to the right hand that is streaking into the wrist and of the arm. Patient is in a detention and has been on Rocephin with worsening of symptoms. IV access was established and labs were obtained. Blood cultures and lactic were gathered. X-ray was performed. She was empirically started on vancomycin and Zosyn. COVID was performed. Patient's blood work is as above and was reviewed. She does not have a significantly elevated white blood cell count, gross anemia, bandemia, or significant electrolyte imbalance. Sed rate and CRP are markedly elevated. Chest x-ray does not show acute process. COVID is negative. Overall the patient does not appear well for discharge home. There is concerned that she has a worsening infection of her hand, which could be potentially devastating. Case was discussed with the on-call hospitalist team who agreed to evaluate her here in the ER. Please see their dictation for further patient course, plan, and disposition. The chart was completed utilizing [employer] Speech Voice Recognition Software. Grammatical errors, random word insertions, pronoun errors, and incomplete sentences are an occasional consequence of this system due to software limitations, ambient noise, and hardware issues. Any formal questions or concerns about the content, text, or information contained within the body of this dictation should be directly addressed to the provider for clarification. . Impression & Plan Infected hand Discharge Plan Visit Data Chief Complaint: Hand Injury/Pain Stated Complaint: Blister R Thumb, Rash/Ulcer R Leg ED Provider: Sam Sorto ED Midlevel Provider: Preston Pagan Discharge Problem: Infected hand Patient Disposition: Admitted As Inpatient Discharge Instructions Interventions: ED Discharge Assessment Last Done: 02/17/23 04:53
[2023-02-18 07:03] LABS: Creatinine Clr Calc Pharmacy 147.3 ml/min; Est GFR (African American) 122.8 ml/min; Est GFR (Non-African American) 105.9 ml/min; Potassium 3.3 mmol/L (3.5-5.1)
[2023-02-18] MEDS: GABAPENTIN 100 MG CAP PO SCH ×3 (07:46→20:06)
[2023-02-18] MEDS: METOPROLOL TARTRATE 50 MG TAB PO SCH ×2 (07:46→20:06)
[2023-02-18] MEDS: TOPIRAMATE 50 MG TAB PO SCH ×2 (07:46→20:06)
[2023-02-18] MEDS: CHOLECALCIFEROL 1,000 UNITS 25 MCG TAB PO SCH (07:47)
[2023-02-18] MEDS: FUROSEMIDE 40 MG TAB PO SCH (07:47)
[2023-02-18] MEDS: CITALOPRAM 20 MG TAB PO SCH (07:47)
[2023-02-18] MEDS: ASPIRIN 81 MG ECTAB PO SCH (07:47)
[2023-02-18] MEDS: DICLOFENAC SOD 1% GEL 100 GM TUBE EXT SCH ×4 (07:48→20:06)
[2023-02-18] MEDS: VANCOMYCIN HCL 1,500 MG in SODIUM CHLORIDE 0.9% 500 ML IV SCH ×2 (09:04→21:39)
[2023-02-18] MEDS ORDERED: POTASSIUM CHLORIDE CRTAB 20 MEQ TABCR PO ONE (09:34)
[2023-02-18 09:47] LABS: Hematocrit (blood only) 35.9 % (37.0-47.0); Mean Corpuscular Hemoglobin 29.8 pg (25.0-34.0); Mean Corpuscular Hgb Conc 33.4 g/dL (32.0-36.0); Mean Corpuscular Volume 89.1 fL (80.0-100.0); Mean Platelet Volume 10.3 fL (9.4-12.4); Platelet Count 145 K/uL (130-400); RDW Coefficient of Variation 13.7 % (11.5-14.5); RDW Standard Deviation 44.6 fL (36.4-46.3); Red Blood Count 4.03 M/uL (4.20-5.40); White Blood Count 6.93 K/ul (4.8-10.8)
[2023-02-18] MEDS: ENOXAPARIN INJ 40 MG/0.4 ML SYR SQ SCH (10:51)
--- NOTE | 2023-02-18 16:24 | Hospitalist Progress Note ---
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 Right thumb infection Ruled out Abscess Cellulitis of the right upper extremity Blister on the right thumb -- ESR 25 --CRP 6.7 --MRI hand:Soft tissue bulla of the thumb as can be seen in the setting of cellulitis. No underlying osteomyelitis or soft tissue abscess. --Blood cultures: Negative to date Pain is controlled Continue IV vancomycin, Rocephin Appreciate orthopedics input No plan for procedure Continue conservative management with IV antibiotics Hypokalemia Replete electrolytes as needed Monitor H/O CVA Cerebellar ataxia Wheelchair-bound at [facility] Speech and language deficits secondary to stroke On aspirin and statin Peripheral artery disease Continue aspirin and statin Planned for vascular surgery evaluation as outpatient B/L LE edema ? Venous Stasis Continue Lasix Hypertension Continue metoprolol DVT Px: Lovenox SQ CODE STATUS DNR/DNI Admission and Anticipated Discharge Date Admission Date: February 17, 2023 Subjective Patient is seen and examined at bedside No new complaints Reports right upper extremity pain intermittently Updated patient's family over the phone Denies any chest pain, dyspnea, dizziness, nausea, vomiting, abdominal pain Review of Systems Review of Systems: All systems reviewed & are unremarkable except as noted in Subjective Physical Exam Physical Exam: Physical Exam: Vitals signs as noted above General Appearance:Moderately built and nourished, no apparent distress Head: normocephalic, Atraumatic Eyes: normal inspection, EOMI Neck: supple, Trachea midline Respiratory/Chest: Normal breath sounds, CTA, No accessory muscle use Cardiovascular: S1, S2, No murmur Abdomen/GI:Soft, Non tender, Bowel sounds present Extremities/Musculoskeletal:normal inspection, 1+ pedal edema, RUE+ Blister, Erythema Neurologic/Psych:AAO, +dysarthria , able to move all extremities Skin: normal color, warm Results & Data Results & Data Vital Signs (Past 12 Hours) Vital Signs Temp Pulse Pulse Resp BP BP Pulse Ox 02/18/23 15:05 36.7 C 51 L 16 134/81 98 02/18/23 08:12 02/18/23 07:00 36.8 C 62 16 111/63 97 O2 Del Method 02/18/23 15:05 Room Air 02/18/23 08:12 Room Air 02/18/23 07:00 Room Air Laboratory Results Short CBC 02/18/23 02/18/23 Range/Units 06:20 09:28 WBC Cancelled 6.93 Hgb Cancelled 12.0 Hct Cancelled 35.9 L Plt Count Cancelled 145 BMP 02/18/23 06:20 Sodium 142 Potassium 3.3 L Chloride 115 H Carbon Dioxide 21 BUN 7 Creatinine 0.50 L Glucose 120 H Calcium 8.0 L
[2023-02-18] MEDS: cefTRIAXone SODIUM 2,000 MG in DEXTROSE 5% 50 ML IV SCH (16:27)
--- NOTE | 2023-02-18 17:18 | Orthopedic Progress Note ---
Date of Service February 18, 2023 Assessment & Plan (1) Infected hand: I looked over the MRI in detail and I did not see any infection that was extending into the hand. I did decompress the blister. There was purulent discharge that came out of the blister. It appeared to be an infected bulla or an infected blister of the right thumb. Once that was decompressed she already felt much better. This will help the antibiotics work much better. I do not see any indications for surgery at this time. Continue the antibiotics until healed. She can follow-up with orthopedics on an as-needed basis. If you have any further questions please feel free to contact me personally on my cell phone at [phone]. Mary Pozo was seen and examined at bedside this morning. She has a large blister on the dorsal aspect of her right thumb. She has been receiving IV antibiotics. She did have an MRI of her right thumb.. Review of Systems All systems reviewed & are unremarkable except as noted in HPI & below. Physical Exam On physical examination of right hand there is a very large blister involving the entire dorsal aspect of her right thumb. There is also some streaking erythema that goes up the radial side of her forearm towards her elbow.. Results & Data Results & Data Laboratory Results . Diagnostic Findings MRI of the right hand shows a soft tissue bulla or blister on the dorsal aspect of the right thumb. There is no signs of abscess no signs of osteomyelitis no signs of infection.. PG Care Time/CCT Total # of Minutes Spent Total Time Spent with Patient: Total time spent is greater than 50% in coordination of care (as documented) at patient's floor/unit and/or counseling patient: Coding Level of Care Code 15867 Post Operative Follow-Up Diagnoses Infected hand L08.9
[2023-02-18] MEDS: ATORVASTATIN 20 MG TAB PO SCH (20:06)
[2023-02-19] MEDS: ENOXAPARIN INJ 40 MG/0.4 ML SYR SQ SCH (08:00)
[2023-02-19] MEDS: FUROSEMIDE 40 MG TAB PO SCH (08:01)
[2023-02-19] MEDS: CITALOPRAM 20 MG TAB PO SCH (08:01)
[2023-02-19] MEDS: CHOLECALCIFEROL 1,000 UNITS 25 MCG TAB PO SCH (08:01)
[2023-02-19] MEDS: METOPROLOL TARTRATE 50 MG TAB PO SCH ×2 (08:01→20:16)
[2023-02-19] MEDS: GABAPENTIN 100 MG CAP PO SCH ×3 (08:02→20:16)
[2023-02-19] MEDS: TOPIRAMATE 50 MG TAB PO SCH ×2 (08:02→20:16)
[2023-02-19] MEDS: ASPIRIN 81 MG ECTAB PO SCH (08:02)
[2023-02-19] MEDS: DICLOFENAC SOD 1% GEL 100 GM TUBE EXT SCH ×4 (08:03→20:16)
[2023-02-19 08:28] LABS: Hematocrit (blood only) 32.2 % (37.0-47.0); Hemoglobin 10.7 g/dl (12.0-16.0); Mean Corpuscular Hemoglobin 29.3 pg (25.0-34.0); Mean Corpuscular Hgb Conc 33.2 g/dL (32.0-36.0); Mean Corpuscular Volume 88.2 fL (80.0-100.0); Mean Platelet Volume 10.9 fL (9.4-12.4); Platelet Count 140 K/uL (130-400); RDW Coefficient of Variation 13.7 % (11.5-14.5); RDW Standard Deviation 44.6 fL (36.4-46.3); Red Blood Count 3.65 M/uL (4.20-5.40); White Blood Count 3.86 K/ul (4.8-10.8)
[2023-02-19 08:32] LABS: BUN Creatinine Ratio 14.3 (10-20); Calcium 8.3 mg/dl (8.6-10.3); Creatinine Clr Calc Pharmacy 131.6 ml/min; Est GFR (African American) 118.3 ml/min; Est GFR (Non-African American) 102.1 ml/min; Magnesium 1.9 mg/dl (1.7-2.4); Potassium 3.2 mmol/L (3.5-5.1)
[2023-02-19] MEDS ORDERED: POLYETHYLENE (MIRALAX) 17 GM PACK PO SCH (09:00)
[2023-02-19] MEDS ORDERED: POTASSIUM CHLORIDE 20 MEQ/15 ML UDC PO ONE (09:55)
[2023-02-19] MEDS: VANCOMYCIN HCL 1,500 MG in SODIUM CHLORIDE 0.9% 500 ML IV SCH ×2 (10:24→21:18)
--- NOTE | 2023-02-19 12:20 | Pharmacy Report ---
Pharmacy PK ABX Note - Date of Service February 19, 2023 - Assessment and Plan Assessment 57 year old F receiving empiric vancomycin and Rocephin for treatment of right hand/upper extremity cellulitis. Patient resides at [facility] and is wheelchair bound following CVA. She reportedly received dose of ceftriaxone prior to coming to ER. Pertinent microbiologic data includes: Positive MRSA Nasal Swab, blood cultures x NGTD. Patient is afebrile with negative procalcitonin and no overt leukocytosis Day # 3 of antimicrobial therapy. Plan Vancomycin * Random level this morning was 17.6 mcg/mL * Continue maintenance dose: 1500 mg IV every 12 hours * Regimen is predicted to achieve target AUC/DILMA of 400-600 mg/L.hr * Random level ordered to be ordered again if continued > 5 days or significant change in renal function Ceftriaxone * 2 g IV q24h Pharmacy will continue to follow and will adjust dose/frequency as necessary. Thank you. Pharmacy has transitioned to AUC monitoring for vancomycin. AUC/DILMA is the preferred PK/PD target and is associated with decreased risk of nephrotoxicity compared to traditional trough targets.
[2023-02-19] MEDS: cefTRIAXone SODIUM 2,000 MG in DEXTROSE 5% 50 ML IV SCH (15:50)
--- NOTE | 2023-02-19 17:10 | Hospitalist Progress Note ---
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 Right thumb infection Ruled out Abscess Cellulitis of the right upper extremity Infected blister versus infected bulla of right thumb -- ESR 25 --CRP 6.7 --MRI hand:Soft tissue bulla of the thumb as can be seen in the setting of cellulitis. No underlying osteomyelitis or soft tissue abscess. --Blood cultures: Negative to date -S/P blister decompressed Pain is controlled Continue IV vancomycin, Rocephin Appreciate orthopedics input No plan for procedure Continue conservative management with IV antibiotics Continue current management Clinically improving Hypokalemia Replete electrolytes as needed Monitor H/O CVA Cerebellar ataxia Wheelchair-bound at [facility] Speech and language deficits secondary to stroke On aspirin and statin Peripheral artery disease Continue aspirin and statin Planned for vascular surgery evaluation as outpatient B/L LE edema ? Venous Stasis Continue Lasix Hypertension Continue metoprolol DVT Px: Lovenox SQ CODE STATUS DNR/DNI Admission and Anticipated Discharge Date Admission Date: February 17, 2023 Subjective Patient is seen and examined at bedside States feeling a lot better today Right hand pain, erythema much improved Reports ability to move fingers better today Denies any chest pain, dyspnea, dizziness, nausea, vomiting, abdominal pain Review of Systems Review of Systems: All systems reviewed & are unremarkable except as noted in Subjective Physical Exam Physical Exam: Physical Exam: Vitals signs as noted above General Appearance:Moderately built and nourished, no apparent distress Head: normocephalic, Atraumatic Eyes: normal inspection, EOMI Neck: supple, Trachea midline Respiratory/Chest: Normal breath sounds, CTA, No accessory muscle use Cardiovascular: S1, S2, No murmur Abdomen/GI:Soft, Non tender, Bowel sounds present Extremities/Musculoskeletal:normal inspection, 1+ pedal edema, RUE+ Blister, Erythema Neurologic/Psych:AAO, +dysarthria , able to move all extremities Skin: normal color, warm Results & Data Results & Data Vital Signs (Past 12 Hours) Vital Signs Temp Pulse Pulse Resp BP BP Pulse Ox 02/19/23 15:10 36.9 C 52 L 16 120/73 95 02/19/23 08:03 36.5 C 52 L 17 127/74 98 O2 Del Method 02/19/23 15:10 Room Air 02/19/23 08:03 Room Air Laboratory Results Short CBC 02/19/23 Range/Units 06:45 WBC 3.86 L (4.8-10.8) K/ul Hgb 10.7 L (12.0-16.0) g/dl Hct 32.2 L (37.0-47.0) % Plt Count 140 (130-400) K/uL BMP 02/19/23 06:45 Sodium 140 Potassium 3.2 L Chloride 114 H Carbon Dioxide 22 BUN 8 Creatinine 0.56 L Glucose 110 H Calcium 8.3 L
--- NOTE | 2023-02-19 17:24 | Orthopedic Progress Note ---
Date of Service February 19, 2023 Assessment & Plan (1) Infected hand: She seems to be doing better since the blister was decompressed. She will continue the IV antibiotics for now but I feel comfortable switching her to oral antibiotics when medically ready. She should continue to improve. She can follow-up with orthopedics as needed. Mary Pozo was seen and examined at bedside this morning. Overall she is doing fairly well. Clinically she seems to be improving. She says she has much less pain in her thumb.. Review of Systems All systems reviewed & are unremarkable except as noted in HPI & below. Physical Exam Physical examination of the right hand, the blister is still decompressed. The streaking cellulitis has subsided from her forearm.. Results & Data Results & Data Laboratory Results . Diagnostic Findings . PG Care Time/CCT Total # of Minutes Spent Total Time Spent with Patient: Total time spent is greater than 50% in coordination of care (as documented) at patient's floor/unit and/or counseling patient: Coding Level of Care Code 11222 Post Operative Follow-Up Diagnoses Infected hand L08.9
[2023-02-19] MEDS: ATORVASTATIN 20 MG TAB PO SCH (20:16)
[2023-02-20 07:08] LABS: Hematocrit (blood only) 33.3 % (37.0-47.0); Mean Corpuscular Hemoglobin 29.3 pg (25.0-34.0); Mean Corpuscular Volume 88.8 fL (80.0-100.0); Mean Platelet Volume 10.4 fL (9.4-12.4); Platelet Count 149 K/uL (130-400); RDW Coefficient of Variation 13.5 % (11.5-14.5); RDW Standard Deviation 44.2 fL (36.4-46.3); Red Blood Count 3.75 M/uL (4.20-5.40); White Blood Count 3.22 K/ul (4.8-10.8)
[2023-02-20 07:27] LABS: Calcium 8.4 mg/dl (8.6-10.3); Creatinine Clr Calc Pharmacy 120.8 ml/min; Est GFR (Non-African American) 99.2 ml/min; Potassium 3.6 mmol/L (3.5-5.1)
[2023-02-20] MEDS: DICLOFENAC SOD 1% GEL 100 GM TUBE EXT SCH ×4 (08:03→21:07)
[2023-02-20] MEDS: TOPIRAMATE 50 MG TAB PO SCH ×2 (08:03→21:08)
[2023-02-20] MEDS: METOPROLOL TARTRATE 50 MG TAB PO SCH ×2 (08:04→21:08)
[2023-02-20] MEDS: GABAPENTIN 100 MG CAP PO SCH ×3 (08:04→21:08)
[2023-02-20] MEDS: CHOLECALCIFEROL 1,000 UNITS 25 MCG TAB PO SCH (08:05)
[2023-02-20] MEDS: CITALOPRAM 20 MG TAB PO SCH (08:05)
[2023-02-20] MEDS: ENOXAPARIN INJ 40 MG/0.4 ML SYR SQ SCH (08:05)
[2023-02-20] MEDS: FUROSEMIDE 40 MG TAB PO SCH (08:06)
[2023-02-20] MEDS: ASPIRIN 81 MG ECTAB PO SCH (08:06)
[2023-02-20] MEDS: VANCOMYCIN HCL 1,500 MG in SODIUM CHLORIDE 0.9% 500 ML IV SCH ×2 (09:52→21:09)
--- NOTE | 2023-02-20 14:34 | Hospitalist Progress Note ---
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 Right thumb infection Ruled out Abscess Cellulitis of the right upper extremity Infected blister versus infected bulla of right thumb -- ESR 25 --CRP 6.7 --MRI hand:Soft tissue bulla of the thumb as can be seen in the setting of cellulitis. No underlying osteomyelitis or soft tissue abscess. --Blood cultures: Negative to date -S/P blister decompressed Pain is controlled Continue IV vancomycin, Rocephin Appreciate orthopedics input No plan for procedure Continue conservative management with IV antibiotics Will likely transition to p.o. antibiotics tomorrow and consider discharge if stable Hypokalemia Replete electrolytes as needed Monitor H/O CVA Cerebellar ataxia Wheelchair-bound at [facility] Speech and language deficits secondary to stroke On aspirin and statin Peripheral artery disease Continue aspirin and statin Planned for vascular surgery evaluation as outpatient B/L LE edema ? Venous Stasis Continue Lasix Hypertension Continue metoprolol DVT Px: Lovenox SQ CODE STATUS DNR/DNI Admission and Anticipated Discharge Date Admission Date: February 17, 2023 Subjective Patient is seen and examined at bedside No new complaints Right hand pain, erythema continues to improve Denies any chest pain, dyspnea, dizziness, nausea, vomiting, abdominal pain Review of Systems Review of Systems: All systems reviewed & are unremarkable except as noted in Subjective Physical Exam Physical Exam: Physical Exam: Vitals signs as noted above General Appearance:Moderately built and nourished, no apparent distress Head: normocephalic, Atraumatic Eyes: normal inspection, EOMI Neck: supple, Trachea midline Respiratory/Chest: Normal breath sounds, CTA, No accessory muscle use Cardiovascular: S1, S2, No murmur Abdomen/GI:Soft, Non tender, Bowel sounds present Extremities/Musculoskeletal:normal inspection, 1+ pedal edema, RUE+ Blister, Erythema Neurologic/Psych:AAO, +dysarthria , able to move all extremities Skin: normal color, warm Results & Data Results & Data Vital Signs (Past 12 Hours) Vital Signs Temp Pulse Resp BP Pulse Ox O2 Del Method 02/20/23 14:04 36.9 C 51 L 17 129/77 99 Room Air 02/20/23 07:27 36.8 C 55 L 16 128/76 97 Room Air Laboratory Results Short CBC 02/20/23 Range/Units 06:38 WBC 3.22 L (4.8-10.8) K/ul Hgb 11.0 L (12.0-16.0) g/dl Hct 33.3 L (37.0-47.0) % Plt Count 149 (130-400) K/uL BMP 02/20/23 06:38 Sodium 142 Potassium 3.6 Chloride 115 H Carbon Dioxide 21 BUN 11 Creatinine 0.61 Glucose 102 H Calcium 8.4 L
[2023-02-20] MEDS: cefTRIAXone SODIUM 2,000 MG in DEXTROSE 5% 50 ML IV SCH (15:49)
[2023-02-20] MEDS: ATORVASTATIN 20 MG TAB PO SCH (21:08)
[2023-02-21 06:31] LABS: BUN Creatinine Ratio 24.2 (10-20); Calcium 8.8 mg/dl (8.6-10.3); Creatinine Clr Calc Pharmacy 118.8 ml/min; Est GFR (African American) 114.4 ml/min; Est GFR (Non-African American) 98.7 ml/min; Potassium 3.3 mmol/L (3.5-5.1)
[2023-02-21] MEDS: TOPIRAMATE 50 MG TAB PO SCH (08:22)
[2023-02-21] MEDS: GABAPENTIN 100 MG CAP PO SCH ×2 (08:22→13:32)
[2023-02-21] MEDS: METOPROLOL TARTRATE 50 MG TAB PO SCH (08:23)
[2023-02-21] MEDS: CITALOPRAM 20 MG TAB PO SCH (08:23)
[2023-02-21] MEDS: CHOLECALCIFEROL 1,000 UNITS 25 MCG TAB PO SCH (08:24)
[2023-02-21] MEDS: ENOXAPARIN INJ 40 MG/0.4 ML SYR SQ SCH (08:24)
[2023-02-21] MEDS: FUROSEMIDE 40 MG TAB PO SCH (08:24)
[2023-02-21] MEDS: DICLOFENAC SOD 1% GEL 100 GM TUBE EXT SCH ×2 (08:25→12:10)
[2023-02-21] MEDS: ASPIRIN 81 MG ECTAB PO SCH (08:26)
[2023-02-21] MEDS ORDERED: POTASSIUM CHLORIDE 20 MEQ/15 ML UDC PO ONE (08:56)
[2023-02-21] MEDS: VANCOMYCIN HCL 1,500 MG in SODIUM CHLORIDE 0.9% 500 ML IV SCH (10:48)
--- NOTE | 2023-02-21 11:33 | Hospitalist Progress Note ---
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 Right thumb infection Ruled out Abscess Cellulitis of the right upper extremity Infected blister versus infected bulla of right thumb -- ESR 25 --CRP 6.7 --MRI hand:Soft tissue bulla of the thumb as can be seen in the setting of cellulitis. No underlying osteomyelitis or soft tissue abscess. --Blood cultures: Negative to date -S/P blister decompressed Pain is controlled Continue IV vancomycin, Rocephin Appreciate orthopedics input Plan to transition to PO antibiotics today Plan to discharge back to SNF when accepted Hypokalemia Replete electrolytes as needed Monitor H/O CVA Cerebellar ataxia Wheelchair-bound at baseline Speech and language deficits secondary to stroke On aspirin and statin Peripheral artery disease Continue aspirin and statin Planned for vascular surgery evaluation as outpatient B/L LE edema ? Venous Stasis Continue Lasix Hypertension Continue metoprolol DVT Px: Lovenox SQ CODE STATUS DNR/DNI Admission and Anticipated Discharge Date Admission Date: February 17, 2023 Subjective Patient is seen and examined at bedside Doing well, No new complaints Right hand pain, erythema much improved Denies any chest pain, dyspnea, dizziness, nausea, vomiting, abdominal pain Review of Systems Review of Systems: All systems reviewed & are unremarkable except as noted in Subjective Physical Exam Physical Exam: Physical Exam: Vitals signs as noted above General Appearance:Moderately built and nourished, no apparent distress Head: normocephalic, Atraumatic Eyes: normal inspection, EOMI Neck: supple, Trachea midline Respiratory/Chest: Normal breath sounds, CTA, No accessory muscle use Cardiovascular: S1, S2, No murmur Abdomen/GI:Soft, Non tender, Bowel sounds present Extremities/Musculoskeletal:normal inspection, 1+ pedal edema, RUE+ Blister, Erythema Neurologic/Psych:AAO, +dysarthria , able to move all extremities Skin: normal color, warm Results & Data Results & Data Vital Signs (Past 12 Hours) Vital Signs Temp Pulse Resp BP Pulse Ox O2 Del Method 02/21/23 07:24 36.6 C 53 L 16 126/75 98 Room Air Laboratory Results [facility] 02/21/23 05:17 Sodium 142 Potassium 3.3 L Chloride 114 H Carbon Dioxide 23 BUN 15 Creatinine 0.62 Glucose 110 H Calcium 8.8
[2023-02-21] MEDS ORDERED: CEFDINIR 300 MG CAP PO SCH (11:45)
--- NOTE | 2023-02-21 12:10 | Discharge Summary ---
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 Patient reports blister of right thumb noticed yesterday and and progressive extending erythematous changes into the arm. Patient also seem to insect bites on the right posterior aspect of her thigh. [facility] Rocephin was given and the plan was to start Keflex but as infection was progressing was sent to ER. Patient has some pressured speech but is able to converse okay. Wheelchair-bound. She is states can eat regular diet. Denies any fevers. No pain at infection site. No chest pain or shortness of breath. No nausea. No abdominal pain. No headaches. No runny nose or sore throat. Normal bowel and bladder movements. Past medical history as mentioned above Past surgical history ligation of oviducts Social history currently single [facility]. Quit smoking 2008. Alcohol occasional. No drug use. Family history father mother has heart disease Admission Exam Per Admitting Provider General- Not in distress Head- atraumatic Eyes- PERRL ENT- oropharynx clear Neck- supple, no JVD, Lungs- clear to auscultation bilaterally, no wheezing or crackles. Heart- regular rate rhythm; no murmur, no gallop. Abdomen- normal bowel sounds, soft, nontender, no distension. Extremities- no pretibial edema, Blister on right thumb, erythematous rash extending from right hand to forearm and arm.Excoriations seen on right thigh posterior aspect Neuro- alert, oriented x 3; PERRL, no facial palsy; pressured and slurred speech,insight ok, obeys commands, moves extremities Principal Diagnosis Right Upper Extremity Cellulitis Hypokalemia Discharge Data Allergies Allergy/AdvReac Type Severity Reaction Status Date / Time No Known Allergies Allergy Unverified 02/17/23 01:01 Consultations 02/17/23 03:02 ED Decision to Admit Stat 02/17/23 08:00 Consult Orthopedic Surgery Routine Procedures Performed Laboratory Results WBC 3.22 K/ul (4.8-10.8) L 02/20/23 06:38 RBC 3.75 M/uL (4.20-5.40) L 02/20/23 06:38 Hgb 11.0 g/dl (12.0-16.0) L 02/20/23 06:38 Hct 33.3 % (37.0-47.0) L 02/20/23 06:38 MCV 88.8 fL (80.0-100.0) 02/20/23 06:38 MCH 29.3 pg (25.0-34.0) 02/20/23 06:38 MCHC 33.0 g/dL (32.0-36.0) 02/20/23 06:38 RDW Std Deviation 44.2 fL (36.4-46.3) 02/20/23 06:38 RDW Coeff of Moise 13.5 % (11.5-14.5) 02/20/23 06:38 Plt Count 149 K/uL (130-400) 02/20/23 06:38 MPV 10.4 fL (9.4-12.4) 02/20/23 06:38 Immature Gran % (Auto) 0.5 % 02/17/23 07:42 Neut % (Auto) 76.9 % 02/17/23 07:42 Lymph % (Auto) 10.7 % 02/17/23 07:42 [place] % (Auto) 10.9 % 02/17/23 07:42 Eos % (Auto) 0.9 % 02/17/23 07:42 Baso % (Auto) 0.1 % 02/17/23 07:42 Neut # (Auto) 6.54 K/uL (1.40-6.50) H 02/17/23 07:42 Lymph # (Auto) 0.91 K/uL (1.2-3.4) L 02/17/23 07:42 [place] # (Auto) 0.93 K/uL (0.11-0.59) H 02/17/23 07:42 Eos # (Auto) 0.08 K/uL (0-0.50) 02/17/23 07:42 Baso # (Auto) 0.01 K/uL (0-0.2) 02/17/23 07:42 Immature Gran # (Auto) 0.04 K/uL (0.01-0.20) 02/17/23 07:42 Absolute Nucleated RBC Cancelled 02/18/23 06:20 Nucleated RBC % (auto) Cancelled 02/18/23 06:20 Platelet Estimate Cancelled 02/18/23 06:20 ESR 25 mm/hr (0-30) 02/17/23 15:08 Sodium 142 mmol/L (136-145) 02/21/23 05:17 Potassium 3.3 mmol/L (3.5-5.1) L 02/21/23 05:17 Chloride 114 mmol/L (98-107) H 02/21/23 05:17 Carbon Dioxide 23 mmol/L (21-32) 02/21/23 05:17 Anion Gap 5 (3-11) 02/21/23 05:17 BUN 15 mg/dl (6-23) 02/21/23 05:17 Creatinine 0.62 mg/dl (0.6-1.2) 02/21/23 05:17 Est Cr Clr Drug Dosing 118.8 ml/min 02/21/23 05:17 Est GFR ( Amer) 114.4 ml/min 02/21/23 05:17 Est GFR (Non-Af Amer) 98.7 ml/min 02/21/23 05:17 BUN/Creatinine Ratio 24.2 (10-20) H 02/21/23 05:17 Glucose 110 mg/dl (70-99(Fasting)) H 02/21/23 05:17 Lactate 0.9 mmol/L (0.4-2.0) 02/17/23 01:05 Calcium 8.8 mg/dl (8.6-10.3) 02/21/23 05:17 Magnesium 1.9 mg/dl (1.7-2.4) 02/19/23 06:45 Total Bilirubin 0.4 mg/dl (0.2-1.0) 02/17/23 01:05 Direct Bilirubin 0.1 mg/dl (0-0.2) 02/17/23 01:05 AST 11 U/L (13-39) L 02/17/23 01:05 ALT 10 U/L (7-52) 02/17/23 01:05 Alkaline Phosphatase 57 U/L (34-104) 02/17/23 01:05 Troponin I High Sens 9.7 pg/ml (0-14) 02/17/23 01:05 C-Reactive Protein 6.70 mg/dl (0-0.5) H 02/17/23 15:08 Total Protein 6.6 gm/dl (6.0-8.3) 02/17/23 01:05 Albumin 3.8 gm/dl (3.4-5.0) 02/17/23 01:05 Procalcitonin < 0.05 ng/ml (0-0.5) 02/17/23 01:05 Urine Color Yellow 02/17/23 05:40 Urine Appearance Cloudy (Clear) A 02/17/23 05:40 Urine pH 7.5 (4.5-7.5) 02/17/23 05:40 Ur Specific [place] 1.014 (1.000-1.030) 02/17/23 05:40 Urine Protein Negative (Negative) 02/17/23 05:40 Urine Glucose (UA) Negative (Negative) 02/17/23 05:40 Urine Ketones Negative (Negative) 02/17/23 05:40 Urine Blood Trace (Negative) H 02/17/23 05:40 Urine Nitrite Negative (Negative) 02/17/23 05:40 Urine Bilirubin Negative (Negative) 02/17/23 05:40 Urine Urobilinogen Negative (Negative) 02/17/23 05:40 Ur Leukocyte Esterase Negative (Negative) 02/17/23 05:40 Urine WBC (Auto) 5-10 /hpf (0-5) H 02/17/23 05:40 Urine RBC (Auto) 5-10 /hpf (0-4) H 02/17/23 05:40 U Hyaline Cast (Auto) 0 /lpf (0-5) 02/17/23 05:40 U Epithel Cells (Auto) 10-20 /lpf (0-5) H 02/17/23 05:40 Urine Bacteria (Auto) Negative (Negative) 02/17/23 05:40 Nasal Screen MRSA (PCR) Positive (Negative) A 02/17/23 Unknown Random Vancomycin 17.6 mcg/ml (10-20) 02/19/23 06:45 SARS-CoV-2, RNA, NAAT NEGATIVE (NEGATIVE) 02/17/23 03:17 Impressions Chest X-Ray 02/17/23 00:53 XR chest 1V portable HISTORY: Sepsis COMPARISON: None. FINDINGS: There are low lung volumes. The cardiac silhouette is enlarged. There is mild central pulmonary vascular congestion without overt edema. No focal lung consolidations to suggest a pneumonia. Calcifications noted within the aortic knob. No acute fractures identified. IMPRESSION: Cardiomegaly with mild central pulmonary vascular congestion without overt edema. ACT 112: Negative or not required by law. Electronically signed by: Jordan Vincent M.D. 02/17/2023 7:31 AM Finger X-Ray 02/17/23 14:41 RIGHT THUMB 3 VIEWS CLINICAL HISTORY: Thumb pain and infection. FINDINGS: 3 views of the right thumb are obtained. No prior studies are available for comparison at the time of dictation. The skeletal structures are osteopenic. No fracture is seen. Mild osteoarthritic change is seen at the first metacarpophalangeal and interphalangeal joints. Soft tissue edema is present throughout the thumb, greatest dorsally. No bony erosion or periostitis is identified. No soft tissue gas or radiodense foreign body seen. IMPRESSION: Soft tissue swelling with no acute bony abnormality identified. Electronically signed by: Joey Carlos M.D. 02/17/2023 7:11 PM Hand MRI 02/17/23 14:41 Exam(s): MRI RIGHT HAND Without Contrast EXAM: MR Right Upper Extremity Without Intravenous Contrast, Hand CLINICAL HISTORY: Reason for exam: thumb infection-attention to thumb. TECHNIQUE: Multiplanar magnetic resonance images of the right hand without intravenous contrast. COMPARISON: No relevant prior studies available. FINDINGS: Soft tissue bulla along the skin of the thumb. No abscess. No soft tissue gas. Marrow signal is within normal limits. No acute osteomyelitis. No joint effusion or septic arthritis. IMPRESSION: Soft tissue bulla of the thumb as can be seen in the setting of cellulitis. No underlying osteomyelitis or soft tissue abscess. Electronically signed by: Yosvany Rice MD 02/17/23 22:08 PM Ordered Studies 02/17/23 14:41 MRI Hand [MR hand RT wo con] Urgent Hospital Course (1) Infected hand: Patient is a 57 yr female with H/O Hyperlipidemia, peripheral artery disease, hypertension, history of pericardial fusion, GERD, vitamin B12 deficiency osteopenia, osteoarthritis, history of bilateral lower extremity edema, cerebellar ataxia s/p CVA wheelchair-bound, speech and language deficits as late effect of stroke, anxiety, depression, history of tobacco abuse currently residing at [facility] was brought in because of infection of the right hand. Right thumb infection Ruled out Abscess Cellulitis of the right upper extremity Infected blister versus infected bulla of right thumb -- ESR 25 --CRP 6.7 --MRI hand:Soft tissue bulla of the thumb as can be seen in the setting of cellulitis. No underlying osteomyelitis or soft tissue abscess. --Blood cultures: Negative to date -S/P blister decompressed Pain is controlled Continue IV vancomycin, Rocephin Appreciate orthopedics input Plan to transition to PO antibiotics today Plan to discharge back to SNF when accepted Hypokalemia Replete electrolytes as needed Monitor H/O CVA Cerebellar ataxia Wheelchair-bound at baseline Speech and language deficits secondary to stroke On aspirin and statin Peripheral artery disease Continue aspirin and statin Planned for vascular surgery evaluation as outpatient B/L LE edema ? Venous Stasis Continue Lasix Hypertension Continue metoprolol DVT Px: Lovenox SQ CODE STATUS DNR/DNI Total Time Total Time Spent Total Time Spent (In Minutes): 55 minutes Discharge Plan Discharge Items Patient Disposition: Transfer Alf Fac Reason For Visit: RIGHT HAND INFECTION Discharge Diagnosis: Right Upper Extremity Cellulitis Hypokalemia Activity: Per Instructions section Exercise/Sports: Wait until after follow-up appointment Non-emergency contact: Primary Care Provider Call non-emergency contact if: you have any medication questions, your symptoms worsen, your pain is concerning for you and you have a fever Follow-up/Referrals: [facility] [Primary Care Provider] - Diet: Regular Addtl Attending Provider Instructions: Follow-up with your primary care physician in 1 week as advised -- Complete antibiotic course cefdinir, doxycycline as prescribed. Seek immediate medical attention if your symptoms reoccur or worsen Please take all medications as instructed on discharge list below. Please call if you have any questions or problems. You can reach a [facility] hospitalist on duty at [facility] 24 hours a day by calling [phone] Pending Studies at Discharge: Yes Studies:: Blood Cultures Stand-Alone Forms: My [facility] Skilled Items Patient informed of condition?: Yes DNR: Yes Discharge Level of Care: Skilled Communicable Disease: No Discharge Prognosis: Stable Lines: None Urinary Catheter: No Medications and DC Order Prescriptions: New doxycycline hyclate 100 mg Capsule 100 mg PO BID Qty: 12 0RF potassium chloride 20 mEq Tablet,Er Particles/Crystals 20 meq PO DAILY Qty: 7 0RF cefdinir 300 mg Capsule 300 mg PO BID Qty: 12 0RF Continued atorvastatin 20 mg Tablet 20 mg PO HS alendronate 70 mg Tablet 70 mg PO WK Rx Instructions: give 30 minutes before morning meal with 8 oz of water. have pt remain upright for 30 minutes following ingestion of tablet aspirin [Aspirin Low-Strength] 81 mg Tablet,Delayed Release (Dr/Ec) 81 mg PO DAILY furosemide 40 mg tablet 40 mg PO QAM acetaminophen 325 mg Tablet 650 mg PO Q4 MDD 3g PRN (Reason: mild to severe pain) acetaminophen [Tylenol] 325 mg Tablet 650 mg PO Q4 MDD 3g PRN (Reason: temp>100.4) calcium carbonate [Calcium Antacid] 200 mg calcium (500 mg) Tablet,Chewable 200 mg PO Q6 PRN (Reason: Indigestion) gabapentin 100 mg capsule 200 mg PO TID metoprolol tartrate 50 mg tablet 50 mg PO AMPM polyethylene glycol 3350 [Gavilax] 17 gram/dose powder 17 g PO WK topiramate 50 mg tablet 50 mg PO AMHS cholecalciferol (vitamin D3) [Vitamin D3] 25 mcg (1,000 unit) Tablet 25 mcg PO DAILY cyanocobalamin (vitamin B-12) 1,000 mcg/mL solution 1,000 mcg IM MONTHLY Rx Instructions: due on 02/22/23 hydrocortisone 2.5 % cream 1 applic TOPICAL BID Rx Instructions: apply to bites on thighs citalopram 10 mg tablet 10 mg PO DAILY diclofenac sodium 1 % gel 4 g TOPICAL QID Rx Instructions: apply to both knees biotin 300 mcg Tablet 300 mcg PO DAILY povidone-iodine [Betadine] 10 % Solution 1 applic TOPICAL TID Rx Instructions: soak right thumb in 50/50 solution of betadine and saline times 20 minutes tid...start 02/16/23 d/c date 02/18/23 Discontinued cephalexin 500 mg capsule 500 mg PO TID Rx Instructions: start 02/16/23 d/c date 02/25/23 Discharge Orders: Discharge Order (Routine); Ordered 02/21/23 Ordered By: Daniel Killian Admission Data Admit Date/Time: 02/17/23 03:37 Attending Provider: Daniel Killian Admit Provider: Myles Atkins Primary Care Provider: Sánchez Tapia Other Providers: Chuck Strauss ; Myles Atkins ; Sánchez Tapia
[2023-02-21] MEDS ORDERED: DOXYCYCLINE HYCLATE 100 MG CAP PO SCH (21:00)
[2023-02-22] MEDS ORDERED: POTASSIUM CHLORIDE CRTAB 20 MEQ TABCR PO SCH (09:00)
== END 2023-02-21 13:55 | DRG 603 ==
LOC: ED 00:39 → 3N 03:37